=== PATIENT | male | born 1950 | race Caucasian/White ===

== ENCOUNTER 2018-02-24 13:03 | Outpatient (CLI) | payer OTHER ==
--- NOTE | 2018-02-28 08:34 | Magnetic Resonance Report ---
MR LOWER EXTREMITY JOINT RIGHT WITHOUT CONTRAST HISTORY: Persistent right knee pain. TECHNIQUE: Multisequence, multiplanar MRI without contrast was performed through the right knee. FINDINGS: Severe medial compartment cartilage loss and joint space narrowing is identified. There is near complete or complete cartilage loss throughout the medial compartment. The cartilage within the lateral compartment and patellofemoral space are within normal limits. No evidence for bone lesion or bony fracture. 9 mm subchondral cyst in the lateral tibial plateau is noted. Small subchondral cysts and subchondral sclerosis are noted in the medial femoral condyle. The medial meniscus is markedly abnormal. There is severe degeneration throughout the body and posterior horn of the medial meniscus. Meniscal fragmentation/complex tear is likely present. There is a focal area of abnormal signal in the posterior horn of the lateral meniscus near its posterior insertion site behind the tibial spine. This appears to represent a vertical tear or parrot beak tear. The ACL, PCL, MCL, LCL complex and extensor complex appear intact. There is a multiloculated cystic structure anterior to the medial meniscus measuring 2.7 x 1.1 x 1.0 cm. It is unclear if this represents a ganglion cyst or a para meniscal cyst. There is a small joint effusion extending to the suprapatellar bursa. 3 or 4 fragments measuring up to 4 mm are identified in the posterior joint space just posterior to the cruciate ligaments. These may represent free intra-articular fragments. 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 Severely abnormal medial meniscus. Advanced degeneration and complex tear/fragmentation is suspected. Focal tear of the posterior horn the lateral meniscus as described. Small joint effusion. Ganglion cyst versus para meniscal cyst anterior to the medial meniscus. 3 or 4 small free intra-articular fragments are identified in the posterior joint space. This may represent meniscal fragments.
== END 2018-02-24 13:04 | disposition home or self-care (01) ==
LOC: MRI 13:03
PROVIDERS: ATTEND Family Medicine
DX: M17.11 Unilateral primary osteoarthritis, right knee (principal); M25.461 Effusion, right knee
CPT/HCPCS: 73721